=== PATIENT | male | born 1950 | race Caucasian/White ===

== ENCOUNTER 2021-08-09 06:20 | Day surgery (SDC) | payer MEDICARE ==
[2021-08-08 12:55] LABS: BASOPHILS % (AUTO) 0.7 % (0-1); EOSINOPHILS # (AUTO) 0.1 X10'3 (0-0.9); EOSINOPHILS % (AUTO) 2.4 % (0-6); HEMATOCRIT 42.3 % (42.0-52.0); HEMOGLOBIN 14.2 g/dl (14.0-17.9); LYMPHOCYTES # (AUTO) 1.1 X10'3 (1.1-4.8); LYMPHOCYTES % (AUTO) 23.7 % (21-51); MEAN CORPUSCULAR HGB CONC 33.6 g/dL (33.0-36.5); MEAN CORPUSCULAR VOLUME 86.1 FL (78-98); MONOCYTES # (AUTO) 0.3 X10'3 (0-0.9); MONOCYTES % (AUTO) 6.7 % (2-12); NEUTROPHILS # (AUTO) 3.2 X10'3 (1.8-7.7); NEUTROPHILS % (AUTO) 66.5 % (42-75); PLATELET COUNT 187 X10'3 (140-440); RED BLOOD COUNT 4.91 X10'6 (4.70-6.10); RED CELL DISTRIBUTION WIDTH 14.5 % (11.5-14.5); WHITE BLOOD COUNT 4.8 X10'3 (4.5-11.0)
[2021-08-08 13:05] LABS: ALBUMIN 3.8 G/DL (3.4-5.0); ANION GAP 9 (8-16); BLOOD UREA NITROGEN 23 MG/DL (7-18); BUN/CREATININE RATIO 20.2 (5.4-32.0); CHLORIDE 104 MMOL/L (99-107); CREATININE 1.14 MG/DL (0.60-1.10); GLUCOSE 100 MG/DL (70-104); POTASSIUM 4.2 MMOL/L (3.5-5.1); SODIUM 140 MMOL/L (135-145); TOTAL CARBON DIOXIDE 27.1 MMOL/L (24-32); eGFR 63 ML/MIN
[2021-08-08 13:11] LABS: CALCIUM 9.3 MG/DL (8.5-10.1)
[2021-08-08 13:39] LABS: APTT 27 SECONDS (22-32)
[2021-08-09] VITALS (12 sets, daily range): BP systolic 98–133; BP diastolic 57–82
[~2021-08-09] VITALS: Ht 182.9 cm; Wt 98.9 kg
[~2021-08-09 06:20] MED LIST: SIMV80TA2 PO
[2021-08-09] MEDS ORDERED: diphenhydrAMINE 25mg capsule PO PRN (06:40)
[2021-08-09] MEDS ORDERED: LORazepam 0.5 MG tablet PO PRN (06:40)
[2021-08-09] MEDS ORDERED: LIDOcaine/PRILOcaine 5gm cream TP ONE (06:40)
[2021-08-09] MEDS ORDERED: normal saline 1,000 ML IV SCH (06:40)
[2021-08-09] MEDS ORDERED: CHOL20002 PO (06:43)
[2021-08-09] MEDS ORDERED: ASCO500C17 PO (06:43)
[2021-08-09] MEDS ORDERED: ROSU40TA22 PO (06:43)
[2021-08-09] MEDS ORDERED: [UNRECOGNIZED DRUG - OTHER] PO (06:43)
[2021-08-09] MEDS ORDERED: ALLO100T15 PO (06:43)
[2021-08-09] MEDS ORDERED: SPIR25TA5 PO (06:43)
[2021-08-09] MEDS ORDERED: CARV6.253 PO (06:43)
[2021-08-09] MEDS ORDERED: ASPI81TA52 PO (06:43)
[2021-08-09] MEDS ORDERED: IRBE75TA8 PO (06:43)
[2021-08-09] MEDS ORDERED: iohexol 350MG/ML 100ml bottle IV ONE ×3 (08:00→09:31)
[2021-08-09] MEDS ORDERED: LIDOCAINE HCL 10 MG/ML 1% MDV 50ml injection ONE (08:00)
[2021-08-09] MEDS ORDERED: midazolam 1 mg/ML 2ml injection ONE (08:44)
[2021-08-09] MEDS ORDERED: verapamil 2.5 mg/ml inj IV ONE (08:44)
[2021-08-09] MEDS ORDERED: fentaNYL/PF 50MCG/1 ML 2ML syringe ONE (08:44)
[2021-08-09] MEDS ORDERED: nitroGLYCERIN-Tridil 50MG/D5W 250 ML IV ONE (08:44)
[2021-08-09] MEDS ORDERED: heparin 1,000unit/ml 10ml vial 10 ML ONE (08:44)
[2021-08-09] MEDS ORDERED: heparin 25,000 UNIT/250ml bag 250 ML IV ONE (09:44)
[2021-08-13 06:20] LABS: ISTAT Hct MIX 38 %PCV (42-52); ISTAT O2 SATURATION MIX VENOUS 66 % (60-80); ISTAT SOURCE BLNK
[2021-08-13 06:21] LABS: ISTAT HGB ART 12.9 g/dl (14.0-18.0); ISTAT Hct ART 38 %PCV (42-52); ISTAT O2 SATURATION ARTERIAL 96 % (95-98); ISTAT SOURCE BLNK
== END 2021-08-09 16:00 | disposition home or self-care (01) ==
LOC: SSTAY O 06:20
PROVIDERS: ATTEND Internal Medicine Cardiovascular Disease
DX: R94.39 Abnormal result of other cardiovascular function study (principal); R53.83 Other fatigue; I25.10 Atherosclerotic heart disease of native coronary artery without angina pectoris; E78.5 Hyperlipidemia, unspecified; J44.9 Chronic obstructive pulmonary disease, unspecified; I11.0 Hypertensive heart disease with heart failure; I50.22 Chronic systolic (congestive) heart failure; G47.30 Sleep apnea, unspecified; E66.3 Overweight; Z68.30 Body mass index [BMI] 30.0-30.9, adult; N40.0 Benign prostatic hyperplasia without lower urinary tract symptoms; M10.9 Gout, unspecified; M19.90 Unspecified osteoarthritis, unspecified site; Z98.890 Other specified postprocedural states; Z79.899 Other long term (current) drug therapy; Z96.641 Presence of right artificial hip joint; Z87.891 Personal history of nicotine dependence; Z72.89 Other problems related to lifestyle; Z83.6 Family history of other diseases of the respiratory system
CPT/HCPCS: 36415; 76937; 80048; 82803; 85014; 85025; 85610; 85730; 93005; 93460; 93571; 99152; 99153; A6258; C1751; C1769; C1894; J1644; J2250; J3010; J3490; J7030; Q0163; Q9967; 93458; A4620; A5120; A6402

== ENCOUNTER 2023-03-03 06:41 | Day surgery (SDC) | payer MEDICARE ==
[2023-02-27 15:10] LABS: BASOPHILS # (AUTO) 0.1 X10'3 (0-0.2); BASOPHILS % (AUTO) 0.8 % (0-1); EOSINOPHILS # (AUTO) 0.1 X10'3 (0-0.9); EOSINOPHILS % (AUTO) 1.5 % (0-6); LYMPHOCYTES # (AUTO) 1.8 X10'3 (1.1-4.8); LYMPHOCYTES % (AUTO) 28.6 % (21-51); MEAN CORPUSCULAR HEMOGLOBIN 29.9 PG (27.0-31.0); MEAN CORPUSCULAR HGB CONC 33.7 g/dL (33.0-36.5); MEAN CORPUSCULAR VOLUME 88.7 FL (78-98); MEAN PLATELET VOLUME 8.5 FL (7.4-10.4); MONOCYTES # (AUTO) 0.5 X10'3 (0-0.9); MONOCYTES % (AUTO) 7.9 % (2-12); NEUTROPHILS # (AUTO) 3.8 X10'3 (1.8-7.7); NEUTROPHILS % (AUTO) 61.2 % (42-75); PRE OP HEMATOCRIT 45.4 % (42.0-52.0); PRE OP HEMOGLOBIN 15.3 g/dL (14.0-17.9); PRE OP PLATELET COUNT 178 X10'3 (140-440); PRE OP WHITE BLOOD COUNT 6.3 10'3 (4.8-10.8); RED BLOOD COUNT 5.12 X10'6 (4.70-6.10); RED CELL DISTRIBUTION WIDTH 14.2 % (11.5-14.5)
[2023-02-27 15:29] LABS: ALBUMIN 3.7 G/DL (3.4-5.0); ALBUMIN/GLOBULIN RATIO 1.1 (1.1-1.5); ALKALINE PHOSPHATASE 61 IU/L (46-116); BLOOD UREA NITROGEN 18 MG/DL (7-18); BUN/CREATININE RATIO 16.4 (10.0-20.0); CALCIUM 9.1 MG/DL (8.5-10.1); CHLORIDE 105 MMOL/L (99-107); PRE OP ALT 33 U/L (30-65); PRE OP ANION GAP 11 (8-16); PRE OP AST 24 U/L (10-37); PRE OP BILIRUB, TOTAL 0.7 MG/DL (0.0-1.0); PRE OP GLUCOSE 100 MG/DL (70-104); PRE OP POTASSIUM 3.8 MMOL/L (3.4-5.1); PRE OP SODIUM 142 MMOL/L (135-145); TOTAL CARBON DIOXIDE 25.9 MMOL/L (24-32); TOTAL PROTEIN 7.2 G/DL (6.4-8.2); eGFR 65 ML/MIN
[~2023-03-03] VITALS: Ht 182.9 cm; Wt 103.0 kg
[2023-03-03] VITALS (8 sets, daily range): BP systolic 108–129; BP diastolic 64–84; PULSE 51–61; RESP 8–21; TEMP 97.9; O2SAT 92–98
[~2023-03-03 06:41] MED LIST changes: +ALLO100T15 PO; +ASCO500C17 PO; +ASPI81TA52 PO; +B HEALTHY; +BUPIVAcaine/PF 2.5mg/ml (0.25%) 10ml vial ONE; +CARV6.253 PO; +CHOL20002 PO; +DOCUMENT DATE & TIME OF BETA-BLOCKER PO ONE; +FLUT1BLS4 INH; +ROSU40TA22 PO; +SACU1TAB7 PO; -SIMV80TA2 PO; +SPIR25TA5 PO; +[UNRECOGNIZED DRUG - OTHER] PO; +cefazolin 2gm/D5W 100mL 100 ML IV ONE; +famotidine 20mg tablet PO ONE; +ringers solution, lacted 1,000 ML IV ONE
[2023-03-03] MEDS ORDERED: morphine 2 MG/ML inj. syringe IV PRN (07:40)
[2023-03-03] MEDS ORDERED: morphine 4 MG/ML inj SYRINge IV PRN (07:40)
[2023-03-03] MEDS ORDERED: labetalol 20mg/4ml (5mg/ml) syringe IV PRN (07:40)
[2023-03-03] MEDS ORDERED: ondansetron/PF 4mg/2ml inj IV PRN (07:40)
[2023-03-03] MEDS ORDERED: ringers solution, lacted 1,000 ML IV SCH (07:40)
[2023-03-03] MEDS ORDERED: fentaNYL/PF 50MCG/1 ML 2ML syringe ONE (08:55)
[2023-03-03] MEDS ORDERED: midazolam 1 mg/ML 2ml injection ONE (08:57)
[2023-03-03] MEDS ORDERED: BUPIVAcaine/PF 2.5mg/ml (0.25%) 10ml vial IJ ONE ×2 (08:57→09:30)
[2023-03-03] MEDS ORDERED: flumazenil 0.1 mg/ml inj. IV ONE (09:32)
== END 2023-03-03 10:50 | disposition home or self-care (01) ==
LOC: PAS 06:41
PROVIDERS: ATTEND Orthopaedic Surgery Hand Surgery
DX: G56.01 Carpal tunnel syndrome, right upper limb (principal); J43.9 Emphysema, unspecified; G47.30 Sleep apnea, unspecified; I10 Essential (primary) hypertension; I25.2 Old myocardial infarction; N40.0 Benign prostatic hyperplasia without lower urinary tract symptoms; M10.9 Gout, unspecified; M17.11 Unilateral primary osteoarthritis, right knee; M18.12 Unilateral primary osteoarthritis of first carpometacarpal joint, left hand; I25.10 Atherosclerotic heart disease of native coronary artery without angina pectoris; Z95.5 Presence of coronary angioplasty implant and graft; Z96.649 Presence of unspecified artificial hip joint; Z87.891 Personal history of nicotine dependence; Z79.899 Other long term (current) drug therapy; Z79.82 Long term (current) use of aspirin; Z88.5 Allergy status to narcotic agent; Z98.890 Other specified postprocedural states; Z72.89 Other problems related to lifestyle
CPT/HCPCS: 36415; 64721; 80053; 82948; 85025; 93005; J0690; J2250; J3010; J3490; J7030; J7120; Z7506; Z7512; A4215; A6449